=== PATIENT | male | born 1980 | race Hispanic/Latino ===

== ENCOUNTER 2024-06-02 10:09 | Emergency (ER) | payer BC ==
--- OUTSIDE RECORDS SUMMARY | 2024-06-02 10:12 | XMS REPORT | Continuity of Care Document ---
Author Name Unknown Address [address] [facility] [address] [place] [address] [facility] thconnect Address [address] [facility] [address] [place] [address] Care Team Providers Care Dairy Associate Name Role Phone Eryn Attending Clinician UnavailJabier Sewell Attending Clinician Unavailable MAGDIEL Attending Clinician Unavailable Luther Fraser Attending Clinician [phone] Eryn Admitting Clinician Jabier Arnold Admitting Clinician Unavailable MAGDIEL Admitting Clinician Unavailable Payers Payer Name Policy Type Policy Number Effective Date Expirati on Date Source [place] [id number] 2019 00:00:00 Problems Condition Name Condition Details Condition Category Status Onset Date Resolution Date Last Treatment Date Treating Clinician Comments Source Anterior to posterior tear of superior glenoid labrum of left shoulder Anterior to Posterior Tear of Superior Glenoid Labrum of Left Shoulder Problem Active 2021-05 00:00: 00 [facility] Pain of left shoulder joint Pain of Left Shoulder Joint Problem Active 2021-05 0 00:00: 00 [facility] Instabilit y of left shoulder joint Instabilit y of Left Shoulder Joint Problem Active 2021-05 0 00:00: 00 [facility] Family history of Cardiovasc ular disease Family History of Cardiovasc ular Disease Problem Active 06-21 00:00: 00 [facility] History of SARS-CoV-2 History of SARS-CoV-2 Problem Active 06-21 00:00: 00 [facility] Allergies, Adverse Reactions, Alerts Allergy Name Allergy Type Status Severity Reaction(s) Onset Date Inactive Date Treating Clinician Comments Source No Known Drug Allergie s DA Active U 2021-05 00:00: 00 [facility] Social History Smoking Status Start Date Stop Date Source Never Smoker [facility] Medications Ordered Medication Name Filled Medication Name Start Date Stop Date Current Medication? Ordering Clinician Indication Dosage Frequency Signature (SIG) Comments Components Source methocarbam ol 500 mg tablet Take 2 tablets 4 times a day by oral route. methocarbam ol 500 mg tablet Take 2 tablets 4 times a day by oral route. No 2 QID methocarba mol 500 mg tablet Take 2 tablets 4 times a day by oral route. [facility] prednisone 20 mg tablet 3 po qd on first day, 2 po qd on second day, then 1 po qd until finished. prednisone 20 mg tablet 3 po qd on first day, 2 po qd on second day, then 1 po qd until finished. No prednisone 20 mg tablet 3 po qd on first day, 2 po qd on second day, then 1 po qd until finished. [facility] amoxicillin 875 mg-potassiu m clavulanate 125 mg tablet TAKE 1 TABLET BY MOUTH IN THE MORNING AND 1 TABLET IN THE EVENING. amoxicillin 875 mg-potassiu m clavulanate 125 mg tablet TAKE 1 TABLET BY MOUTH IN THE MORNING AND 1 TABLET IN THE EVENING. No amoxicilli n 875 mg-potassi um clavulanat e 125 mg tablet TAKE 1 TABLET BY MOUTH IN THE MORNING AND 1 TABLET IN THE EVENING. [facility] methocarbam ol 500 mg tablet TAKE 2 TABLETS 4 TIMES A DAY BY ORAL ROUTE. methocarbam ol 500 mg tablet TAKE 2 TABLETS 4 TIMES A DAY BY ORAL ROUTE. No methocarba mol 500 mg tablet TAKE 2 TABLETS 4 TIMES A DAY BY ORAL ROUTE. [facility] prednisone 20 mg tablet PLEASE SEE ATTACHED FOR DETAILED DIRECTIONS prednisone 20 mg tablet PLEASE SEE ATTACHED FOR DETAILED DIRECTIONS No prednisone 20 mg tablet PLEASE SEE ATTACHED FOR DETAILED DIRECTIONS [facility] amoxicillin 875 mg-potassiu m clavulanate 125 mg tablet TAKE 1 TABLET BY MOUTH IN THE MORNING AND 1 TABLET IN THE EVENING. amoxicillin 875 mg-potassiu m clavulanate 125 mg tablet TAKE 1 TABLET BY MOUTH IN THE MORNING AND 1 TABLET IN THE EVENING. No amoxicilli n 875 mg-potassi um clavulanat e 125 mg tablet TAKE 1 TABLET BY MOUTH IN THE MORNING AND 1 TABLET IN THE EVENING. [facility] methocarbam ol 500 mg tablet TAKE 2 TABLETS 4 TIMES A DAY BY ORAL ROUTE. methocarbam ol 500 mg tablet TAKE 2 TABLETS 4 TIMES A DAY BY ORAL ROUTE. No methocarba mol 500 mg tablet TAKE 2 TABLETS 4 TIMES A DAY BY ORAL ROUTE. [facility] prednisone 20 mg tablet PLEASE SEE ATTACHED FOR DETAILED DIRECTIONS prednisone 20 mg tablet PLEASE SEE ATTACHED FOR DETAILED DIRECTIONS No prednisone 20 mg tablet PLEASE SEE ATTACHED FOR DETAILED DIRECTIONS [facility] Vital Signs Vital Name Observation Time Observation Value Comments S ource Height 2022-03-21 00:00:00 73 [in_i] [facility] BMI (Body Mass Index) 2022-03-21 00:00:00 24 kg/m2 [facility] Body Weight 2022-03-21 00:00:00 182 [lb_av] [facility] Height 2022-03-07 00:00:00 73 [in_i] [facility] BMI (Body Mass Index) 2022-03-07 00:00:00 24 kg/m2 [facility] Body Weight 2022-03-07 00:00:00 182 [lb_av] [facility] BP Diastolic 2021-06-21 00:00:00 74 mm[Hg] [facility] Height 2021-06-21 00:00:00 72 [in_i] [facility] BMI (Body Mass Index) 2021-06-21 00:00:00 26.4 kg/m2 [facility] BP Systolic 2021-06-21 00:00:00 128 mm[Hg] [facility] Body Weight 2021-06-21 00:00:00 3120 [oz_av] [facility] Procedures Procedure Date / Time Performed Performing Clinician Source XR, shoulder, 2 or more view 2022-03-07 00:00:00 [facility] MR, arthrogram, shoulder 2022-03-07 00:00:00 [facility] Circumcision [facility] Reconstruction of Anterior Cruciate Ligament of Knee Joint [facility] Partial Repair of Rotator Cuff [facility] Procedure on Lung [facility] Knee Surgery [facility] Shoulder Surgery [facility] Plan of Care Planned Activity Planned Date Details Comments Source Diagnostic Test Pending 2021-06-21 00:00:00 CMP, serum or plasma [code = CMP, serum or plasma] [facility] Diagnostic Test Pending 2021-06-21 00:00:00 CBC w/ auto diff [code = CBC w/ auto diff] [facility] Diagnostic Test Pending 2021-06-21 00:00:00 lipid panel, serum [code = lipid panel, serum] [facility] Diagnostic Test Pending 2021-06-21 00:00:00 PSA, free, serum or plasma [code = PSA, free, serum or plasma] [facility] Encounters Start Date/Time End Date/Time Encounter Type Admission Type Attending Clinicians Care Facility Care Department Encounter ID Source 2022-05-04 00:00:00 2022-05-04 00:00:00 Outpatient Salma Srinivasan [facility] [id number] [facility] 2022-04-27 00:00:00 2022-04-27 00:00:00 Outpatient Salma Srinivasan [facility] [id number] [facility] 2022-04-16 00:00:00 2022-04-16 00:00:00 Outpatient Salma Srinivasan [facility] [id number] [facility] 2022-04-12 07:21:00 2022-04-12 07:21:[address] [facility] [id number] [facility] 2022-03-28 00:00:00 2022-03-28 00:00:00 Outpatient FOG_Elizabeth Srinivasan [facility] [id number] [facility] 2022-03-21 00:00:00 2022-03-21 00:00:00 Outpatient FOG_Elizabeth Srinivasan [facility] [id number] [facility] 2022-03-21 00:00:00 2022-03-21 00:00:00 Jabier Loo MD: [id number] [place] [address] , Ph. [phone] [facility] [place] [facility] [id number] [facility] 2022-03-20 00:00:00 2022-03-20 00:00:00 Outpatient FOGGrey Srinivasan [facility] [id number] [facility] 2022-03-07 00:00:00 2022-03-07 00:00:00 Outpatient Salma Srinivasan [facility] [id number] [facility] 2022-03-07 00:00:00 2022-03-07 00:00:00 Jabier Loo MD: [id number] [place] [address] , Ph. [phone] [facility] [place] [facility] [id number] [facility] 2022-03-05 00:00:00 2022-03-05 00:00:00 Outpatient FOG_Elizabeth Srinivasan [facility] [id number] [facility] 2022-03-04 00:00:00 2022-03-04 00:00:00 Outpatient DEBORAH_Elizabeth Srinivasan [facility] [id number] [facility] 2021-06-21 12:51:00 2021-06-21 12:51:00 Outpatient MAGDIEL [facility] [id number] [facility] 2021-06-21 00:00:00 2021-06-21 00:00:00 Outpatient Luther Fraser [facility] [id number] 00:00:00 2021-06-21 00:00:00 Luther Fraser, DO: [address], [facility], [place] [address] , Ph. [phone] [facility] - Pending [facility] To [facility] [id number] [facility] 2021-06-19 03:51:00 2021-06-19 03:51:00 Outpatient MAGDIEL [facility]
[2024-06-02] MEDS ORDERED: DICYCLOMINE HCL 20 MG/2 ML AMP IM ONE (10:56)
[2024-06-02] MEDS ORDERED: NA CHLORIDE 0.9% 1,000 ML ONE (10:56)
[2024-06-02 10:59] LABS: Absolute Eosinophils 0.3 K/uL (0-0.5); Absolute Lymphocytes (CBC) 0.9 K/uL (0.7-4.9); Absolute Monocytes 0.8 K/uL (0.1-1.3); Absolute Neutrophil 2.2 K/uL (1.8-8.0); Basophils % 0.7 % (0-1.3); Eosinophils % 7.7 % (0-4.4); Hematocrit 49.8 % (39.6-49.0); Hemoglobin 17.2 g/dL (13.6-17.9); Lymphocytes % 21.2 % (15.3-44.8); MCH 31.1 pg (27.0-35.0); MCHC 34.5 g/dL (32.0-36.0); MPV 8.2 fL (7.6-11.3); Neutrophils % 52.4 % (41.7-73.7); Platelets 155 thou/uL (152-406); RBC Red Blood Cell Count 5.53 M/uL (4.33-5.43); Red Cell Distribution Width 14.4 % (12.1-15.2)
[2024-06-02 11:10] LABS: Anion Gap 8.3 mEq/L (5.0-15.0); Potassium 4.3 mEq/L (3.5-5.1)
[2024-06-02 11:16] LABS: SARS-CoV-2 Antigen CONTROL BLUE LINE VIS/BG OK; SARS-CoV-2 Antigen Rapid Res Negative (Negative)
--- NOTE | 2024-06-02 11:37 | ER ---
Nurse's Notes [facility] Name: Hamilton Grossman Age: 43 yrs Sex: Male : 1980 Arrival Date: 06/02/2024 Time: 10:09 Bed 12 Private MD: Diagnosis: Diarrhea, unspecified Presentation: 06/02 10:29 Chief complaint: Patient states: Abdominal pain with diarrhea for 5 days. Coronavirus ll1 screen: Client indicates they have traveled out of the [place] in the last 14 days. Client traveled to: [facility] diarrhea, fatigue, Client presents with at least one sign or symptom that may indicate coronavirus-19. Standard/surgical mask placed on the client. Ebola Screen: Patient denies travel to an Ebola-affected area in the 21 days before illness onset. Initial Sepsis Screen: Does the patient meet any 2 criteria? No. Patient's initial sepsis screen is negative. Does the patient have a suspected source of infection? No. Patient's initial sepsis screen is negative. Risk Assessment: Do you want to hurt yourself or someone else? Patient reports no desire to harm self or others. Onset of symptoms was May 28, 2024. 10:29 Method Of Arrival: Ambulatory ll1 10:29 Acuity: NHAN 3 ll1 Triage Assessment: 10:29 General: Appears uncomfortable, Behavior is calm, cooperative, appropriate for age. ll1 Pain: Complains of pain in abdomen Pain currently is 3 out of 10 on a pain scale. Quality of pain is described as aching, crampy. Neuro: No deficits noted. GI: Reports cramping, diarrhea. Historical: - Allergies: 10: No Known Allergies; ll1 - Home Meds: 10: None [Active]; ll1 - PMHx: 10: None; ll1 - PSHx: 10: ACL; lung collapsed; ll1 - Immunization history:: Adult Immunizations up to date. - Infectious Disease History:: Denies. - Social history:: Smoking status: Patient denies any tobacco usage or history of. Screenin:54 [facility] ED Fall Risk Assessment (Adult) History of falling in the last 3 months, ll1 including since admission No falls in past 3 months (0 pts) Confusion or Disorientation No (0 pts) Intoxicated or Sedated No (0 pts) Impaired Gait No (0 pts) Mobility Assist Device Used No (0 pt) Altered Elimination No (0 pt) Score/Fall Risk Level 0 - 2 = Low Risk Maintained a safe environment, Hourly rounding (assess needs \T\ fall precautionary measures) done. Abuse screen: Denies threats or abuse. Nutritional screening: No deficits noted. Tuberculosis screening: No symptoms or risk factors identified. Assessment: 11:02 Reassessment: No changes from previously documented assessment. Patient and/or family ll1 updated on plan of care and expected duration. Pain level reassessed. Patient is alert, oriented x 3, equal unlabored respirations, skin warm/dry/pink. 11:54 GI: Bowel sounds present X 4 quads. Abd is soft and non tender X 4 quads. ll1 Vital Signs: 10:29 BP 132 / 89; Pulse 86; Resp 17; Temp 97.7; Pulse Ox 100% ; Weight 85.73 kg; Height 6 ll1 ft. 0 in. ; Pain 3/10; 11:53 BP 131 / 79; Pulse 66; Resp 17; Pulse Ox 100% on R/A; ll1 10:29 Body Mass Index 25.63 (85.73 kg, 182.88 cm) ll1 10:29 Pain Scale: Adult ll1 ED Course: 10:11 Patient arrived in ED. mr 10:18 Pal Mckeon MD is Attending Physician. ec2 10:28 Arm band placed on. ll1 10:32 Triage completed. ll1 10:46 Zeyad Rizo, NELIA is Primary Nurse. ll1 10:46 Patient placed in an exam room, on a stretcher. ll1 10:53 Initial lab(s) drawn, by nj, sent to lab. COVID swab sent to lab. Flu and/or RSV swab kb4 sent to lab. Inserted saline lock: 20 gauge in right antecubital area, using aseptic technique. Blood collected. Flushed with 10 mL NS. 11:02 Influenza Screen (a \T\ B) Sent. ll1 11:02 SARS RAPID Sent. ll1 11:54 Patient has correct armband on for positive identification. Provided Education on: ER ll1 procedures and process. 11:54 No provider procedures requiring assistance completed. IV discontinued, intact, ll1 bleeding controlled, No redness/swelling at site. Pressure dressing applied. Administered Medications: 11:02 Drug: Dicyclomine IM 20 mg IM once Route: IM; Site: left gluteus; ll1 11:42 Follow up: Response: No adverse reaction ll1 11:02 Drug: NS 0.9% IV 1000 ml IV at 1 bolus Per protocol; to be given as a bolus over 60 ll1 minutes Route: IV; Rate: 1 bolus; Site: right antecubital; 11:43 Follow up: Response: No adverse reaction; IV Status: Completed infusion; IV Intake: ll1 1000ml 11:53 Drug: Ciprofloxacin PO 500 mg PO once Route: PO; ll1 11:53 Follow up: Response: No adverse reaction; Pain is decreased ll1 Medication: 11:55 VIS not applicable for this client. ll1 Intake: 11:43 IV: 1000ml; Total: 1000ml. ll1 Outcome: 11:37 Discharge ordered by . ec2 11:54 Discharged to home ambulatory, 1 11:54 Condition: stable 11:54 Discharge instructions given to patient, Instructed on discharge instructions, follow up and referral plans. medication usage, Demonstrated understanding of instructions, follow-up care, medications, Prescriptions given X 3, 11:55 Patient left the ED. 1 Signatures: Naya Guthrie, Reg Reg mr Zeyad Rizo, NELIA RN ll1 Pal Mckeon MD MD ec2 Ashely Gutierrez kb4
--- NOTE | 2024-06-02 11:37 | EDPHYS ---
Physician Documentation [facility] Name: Hamilton Grossman Age: 43 yrs Sex: Male : 1980 Arrival Date: 06/02/2024 Time: 10:09 Bed 12 Private MD: ED Physician Pal Mckeon HPI: 06/02 10:37 This 43 yrs old Male presents to ER via Ambulatory with complaints of ec2 Abdominal Pain, Diarrhea. 10:37 Patient arrives today for evaluation of abdominal cramping and diarrhea. Reports that ec2 has been having symptoms for the past 5 days. Reports that he feels like he is unable to keep food down and she immediately has diarrhea shortly afterwards. Reports no cough and cold symptoms. Denies any fevers. Denies any urinary complaints. 10:39 Patient also reports that he recently got back from [place] several days ago.. ec2 Historical: - Allergies: 10:29 No Known Allergies; ll1 - Home Meds: 10:29 None [Active]; ll1 - PMHx: 10:29 None; ll1 - PSHx: 10:29 ACL; lung collapsed; ll1 - Immunization history:: Adult Immunizations up to date. - Infectious Disease History:: Denies. - Social history:: Smoking status: Patient denies any tobacco usage or history of. ROS: 10:37 Constitutional: as per hpi ec2 Exam: 10:37 Constitutional: GEN: NAD Head: atraumatic Eyes: EOMI Ears: External ears are ec2 normal. CV: regular rate LUNGS: no respiratory distress ABD: non-distended, soft, nontender, not guarding, not rigid SKIN: no evidence of rashes MSK: no evidence of trauma Vital Signs: 10:29 BP 132 / 89; Pulse 86; Resp 17; Temp 97.7; Pulse Ox 100% ; Weight 85.73 kg; Height 6 ll1 ft. 0 in. ; Pain 3/10; 11:53 BP 131 / 79; Pulse 66; Resp 17; Pulse Ox 100% on R/A; ll1 10:29 Body Mass Index 25.63 (85.73 kg, 182.88 cm) ll1 10:29 Pain Scale: Adult ll1 MDM: 10:39 Data reviewed: vital signs, nurses notes. ED course: Patient arrives today for ec2 evaluation of abdominal pain and diarrhea. Reports symptoms onset for 5 days. Examination reveals reassuring abdominal exam. Will obtain lab work, viral swabs and treat the patient with crystalloid and Bentyl. Suspect gastroenteritis. Doubt appendicitis or diverticulitis. Possible viral infection.. 10:47 Medical Screening Exam initiated ec2 11:36 ED course: CBC is reassuring, metabolic profile with appropriate electrolytes and renal ec2 function. Flu and COVID testing negative. On reassessment patient is well-appearing no acute distress. Will discharge home with Susie Cortés given the recent travel as well as anti-emetic as needed for nausea.. 06/02 10:37 Order name: Influenza Screen (a \T\ B); Complete Time: 11:35 ec2 06/02 10:37 Order name: SARS RAPID; Complete Time: 11:35 ec2 06/02 10:37 Order name: CBC with Diff; Complete Time: 11:35 ec2 06/02 10:37 Order name: BMP; Complete Time: 11:35 ec2 06/02 10:37 Order name: IV; Complete Time: 10:46 ec2 Administered Medications: 11:02 Drug: Dicyclomine IM 20 mg IM once Route: IM; Site: left gluteus; ll1 11:42 Follow up: Response: No adverse reaction ll1 11:02 Drug: NS 0.9% IV 1000 ml IV at 1 bolus Per protocol; to be given as a bolus over 60 ll1 minutes Route: IV; Rate: 1 bolus; Site: right antecubital; 11:43 Follow up: Response: No adverse reaction; IV Status: Completed infusion; IV Intake: ll1 1000ml 11:53 Drug: Ciprofloxacin PO 500 mg PO once Route: PO; ll1 11:53 Follow up: Response: No adverse reaction; Pain is decreased ll1 Disposition Summary: 06/02/24 11:37 Discharge Ordered Notes: Location: Home ec2 Condition: Stable ec2 Diagnosis - Diarrhea, unspecified ec2 Followup: ec2 - With: Private Physician - When: - Reason: Re-evaluation by your physician Discharge Instructions: - Discharge Summary Sheet ec2 - Diarrhea, Adult ec2 Forms: - Medication Reconciliation Form ec2 - Antibiotic Education ec2 - Prescription Opioid Use ec2 - Patient Portal Instructions ec2 - Leadership Thank You Letter ec2 Prescriptions: - Reglan 10 mg Oral Tablet - take 1 tablet ORAL route every 6 hours take 30 minutes before meals and at ec2 bedtime; 20 tablet; Refills: 0, Product Selection Permitted - Cipro 500 mg Oral tablet - take 1 tablet ORAL route every 12 hours for 5 days; 10 tablet; Refills: 0, ec2 Product Selection Permitted - dicyclomine 10 mg Oral capsule - take 1 capsule ORAL route 3 times per day; 20 capsule; Refills: 0, Product ec2 Selection Permitted Signatures: Dispatcher [employer] Zeyad Mckay RN RN ll1 Pal Mckeon MD MD ec2 Corrections: (The following items were deleted from the chart) 11:36 11:36 ED course: CBC is reassuring, metabolic profile with appropriate electrolytes and ec2 renal function. Flu and COVID testing negative. On reassessment patient is well-appearing no acute distress. Will discharge home with Bentyl, Cipro given the recent travel as well as Zofran as needed for nausea.. ec2
[2024-06-02] MEDS ORDERED: CIPROFLOXACIN HCL 500 MG TAB ONE (11:46)
[2024-06-02 12:39] VITALS: TEMP 97.7; O2SAT 100
[2024-06-02 12:45] VITALS: BP 131/79
== END 2024-06-02 11:55 | disposition home or self-care (01) ==
LOC: ER 10:09
DX: R19.7 Diarrhea, unspecified (principal); Z11.52 Encounter for screening for COVID-19
CPT/HCPCS: 85025; 80048; 36415; 87804 ×2; 96360; 96372; 99284; 87811; J0500; J7030

== ENCOUNTER 2024-06-09 09:26 | Emergency (ER) | payer BC ==
--- OUTSIDE RECORDS SUMMARY | 2024-06-09 09:30 | XMS REPORT | Continuity of Care Document ---
Author Name Unknown Address [address] [place] [address] [facility] thconnect Address [address] [place] [address] Care Team Providers Care Can Pusher Name Role Phone Eryn Attending Clinician UnavailJabier Sewell Attending Clinician Unavailable MAGDIEL Attending Clinician Unavailable Luther Fraser Attending Clinician [phone] Eryn Admitting Clinician Jabier Arnold Admitting Clinician Unavailable MAGDIEL Admitting Clinician Unavailable Payers Payer Name Policy Type Policy Number Effective Date Expirati on Date Source [place] [id number] 2019 00:00:00 Problems Condition Name Condition Details [...] ular Disease Problem Active 06-21 00:00: 00 [facility] History of SARS-CoV-2 History of SARS-CoV-2 Problem Active 06-21 00:00: 00 [facility] Allergies, Adverse Reactions, Alerts Allergy Name Allergy Type Status Severity Reaction(s) Onset Date Inactive Date Treating Clinician Comments Source No Known Drug Allergie s DA Active U 2021-05 00:00: 00 [facility] Social History Smoking Status Start Date Stop Date Source Never Smoker [facility] Medications Ordered Medication Name Filled Medication Name [...] 4 times a day by oral route. [facility] prednisone 20 mg tablet 3 po qd [...] day, then 1 po qd until finished. [facility] amoxicillin 875 mg-potassiu m clavulanate 125 mg [...] Medicine BP Diastolic 2021-06-21 00:00:00 74 mm[Hg] [facility] Height 2021-06-21 00:00:00 72 [in_i] [facility] BMI (Body Mass Index) 2021-06-21 00:00:00 26.4 kg/m2 [facility] BP Systolic 2021-06-21 00:00:00 128 mm[Hg] [facility] Body Weight 2021-06-21 00:00:00 3120 [oz_av] [facility] Procedures Procedure Date / Time Performed Performing Clinician Source XR, shoulder, 2 or more view 2022-03-07 00:00:00 [facility] MR, arthrogram, shoulder 2022-03-07 00:00:00 [facility] Circumcision [facility] Reconstruction of Anterior Cruciate Ligament of Knee Joint [facility] Partial Repair of Rotator Cuff [facility] Procedure on Lung [facility] Knee [facility] Shoulder Surgery [facility] Plan of Care Planned Activity Planned Date Details Comments Source Diagnostic Test Pending 2021-06-21 00:00:00 CMP, serum or plasma [code = CMP, serum or plasma] [facility] Diagnostic Test Pending 2021-06-21 00:00:00 CBC w/ auto diff [code = CBC w/ auto diff] [facility] Diagnostic Test Pending 2021-06-21 00:00:00 lipid panel, serum [code = lipid panel, serum] [facility] Diagnostic Test Pending 2021-06-21 00:00:00 PSA, free, serum or plasma [code = PSA, free, serum or plasma] [facility] Encounters Start Date/Time End Date/Time Encounter Type Admission Type Attending Clinicians Care Facility Care Department Encounter ID Source 2022-05-04 00:00:00 2022-05-04 00:00:00 Outpatient Salma Srinivasan [facility] [id number] [facility] 2022-04-27 00:00:00 2022-04-27 00:00:00 Outpatient Salma Srinivasan [facility] [id number] [facility] 2022-04-16 00:00:00 2022-04-16 00:00:00 Outpatient Salma Srinivasan [facility] [id number] [facility] 2022-04-12 07:21:00 2022-04-12 07:21:00 Outpatient Jabier Nicole [facility] [id number] [facility] 2022-03-28 00:00:00 2022-03-28 00:00:00 Outpatient FOG_Elizabeth Srinivasan [facility] [id number] [facility] 2022-03-21 00:00:00 2022-03-21 00:00:00 Outpatient FOG_Elizabeth Srinivasan [facility] [id number] [facility] 2022-03-21 00:00:00 2022-03-21 00:00:00 Jabier Loo MD: [id number] [place] [address] , Ph. [phone] [facility] [place] [facility] [place] [facility] [place] [id number] [facility] 2022-03-20 00:00:00 2022-03-20 00:00:00 Outpatient FOGGrey Srinivasan [facility] [id number] [facility] 2022-03-07 00:00:00 2022-03-07 00:00:00 Outpatient Salma Srinivasan [facility] [id number] [facility] 2022-03-07 00:00:00 2022-03-07 00:00:00 Jabier Loo MD: [id number] [place] [address] , Ph. [phone] [facility] [place] [facility] [place] [facility] [place] [id number] [facility] 2022-03-05 00:00:00 2022-03-05 00:00:00 Outpatient FOG_Elizabeth Srinivasan [facility] [id number] [facility] 2022-03-04 00:00:00 2022-03-04 00:00:00 Outpatient DEBORAH_Elizabeth Srinivasan [facility] [id number] [facility] 2021-06-21 12:51:00 2021-06-21 12:51:00 Outpatient MAGDIEL [facility] [id number] [facility] 2021-06-21 00:00:00 2021-06-21 00:00:00 Outpatient Luther Fraser [facility] [id number] 00:00:00 2021-06-21 00:00:00 Luther Fraser, DO: [address], [facility], [place] [address] , Ph. [facility] - [facility], [address] [id number] [facility] 2021-06-19 03:51:00 2021-06-19 03:51:00 Outpatient MAGDIEL [facility]
[2024-06-09] MEDS ORDERED: NA CHLORIDE 0.9% 1,000 ML ONE (10:31)
[2024-06-09] MEDS ORDERED: DICYCLOMINE HCL 20 MG/2 ML AMP IM ONE (10:31)
[2024-06-09 10:44] LABS: Specific Gravity 1.013 (1.005-1.030); Urine Bilirubin NEGATIVE (Negative); Urine Blood Negative (Negative); Urine Clarity Clear (Clear); Urine Color Colorless (Yellow); Urine Glucose NEGATIVE (Negative); Urine Ketones NEGATIVE (Negative); Urine Microscopic Reflex YN NO UMIC; Urine Nitrite NEGATIVE (Negative); Urine Protein NEGATIVE (Negative); Urine Urobilinogen Normal (Normal); Urine pH 6.5 (5.0-7.0)
[2024-06-09 10:44] LABS: Absolute Eosinophils 0.4 K/uL (0-0.5); Absolute Monocytes 0.7 K/uL (0.1-1.3); Absolute Neutrophil 4.9 K/uL (1.8-8.0); Basophils % 0.7 % (0-1.3); Eosinophils % 5.2 % (0-4.4); Hematocrit 45.4 % (39.6-49.0); Hemoglobin 15.2 g/dL (13.6-17.9); Lymphocytes % 13.7 % (15.3-44.8); MCH 30.3 pg (27.0-35.0); MCHC 33.5 g/dL (32.0-36.0); MCV 90.3 fL (80-100); MPV 7.7 fL (7.6-11.3); Monocytes % 10.4 % (3.3-12.3); Nucleated Red Blood Cells % 0.1 % (0-0); Platelets 195 thou/uL (152-406); RBC Red Blood Cell Count 5.03 M/uL (4.33-5.43); Red Cell Distribution Width 14.2 % (12.1-15.2)
--- NOTE | 2024-06-09 10:57 | RAD REPORT ---
EXAMINATION: CT ABDOMEN AND PELVIS WITH CONTRAST CLINICAL INDICATION: Male, 43 years old.ABD PAIN TECHNIQUE: CT abdomen and pelvis was performed, after the administration of IV contrast, as per [facility]par replaced by [facility] protocol. Axial, sagittal and coronal reconstructions were obtained. One or more of the following dose reduction techniques were used: Automated exposure control, adjustment of the mA and/o r kV according to patient size, and/or iterative reconstruction. Unless otherwise specified, incidental findings do not require dedicated imaging follow-up. [id number]. COMPARISON: No prior exam. FINDINGS: LOWER CHEST: No acute process identified.No significant pericardial effusion. Mild circumferential th ickening of the distal esophagus which could reflect esophagitis. UPPER GI: No significant abnormality. LIVER: No significant focal abnormality. GALLBLADDER/BILE DUCTS: No biliary ductal dilatation.? PANCREAS: No mass, ductal dilation, or ashanti-pancreatic fluid. SPLEEN: Unremarkable. ADRENALS: No adrenal masses. KIDNEYS AND URETERS: No hydronephrosis.No suspicious renal mass. ABDOMINAL AORTA AND OTHER VESSELS: Normal caliber aorta and IVC. PERITONEUM: No abnormal free fluid. No free air. LYMPH NODES: No pathologic lymphadenopathy. ABDOMINAL WALL: Small fat containing umbilical hernia. SMALL BOWEL/COLON: Small bowel has normal course and caliber. No colonic wall thickening or pericolon ic inflammatory changes.Normal appendix. URINARY BLADDER: Underdistended but grossly unremarkable. REPRODUCTIVE ORGANS: No pathologic process. MUSCULOSKELETAL: No acute or suspicious osseous abnormality. ADDITIONAL FINDINGS: None. IMPRESSION: No acute or significant abnormalities seen in the abdomen or pelvis. Normal appendix
[2024-06-09 11:01] LABS: Albumin 3.6 g/dL (3.4-5.0); Albumin/Globulin Ratio 0.9 (1.1-1.8); Anion Gap 5.3 mEq/L (5.0-15.0); Bilirubin Total 0.4 mg/dL (0.2-1.0); Globulin 3.9 g/dL (2.3-3.5); Potassium 4.3 mEq/L (3.5-5.1); Protein, Total 7.5 g/dL (6.4-8.2)
--- NOTE | 2024-06-09 11:15 | ER ---
Nurse's Notes [facility] Name: Hamilton Grossman Age: 43 yrs Sex: Male : 1980 Arrival Date: 06/09/2024 Time: 09:26 Bed 8 Private MD: Diagnosis: Abdominal pain, unspecified Presentation: 06/09 10:06 Chief complaint: Patient states: Lower abdominal pain since this morning. Coronavirus jl7 screen: At this time, the client does not indicate any symptoms associated with coronavirus-19. Ebola Screen: No symptoms or risks identified at this time. Initial Sepsis Screen: Does the patient meet any 2 criteria? No. Patient's initial sepsis screen is negative. Does the patient have a suspected source of infection? No. Patient's initial sepsis screen is negative. Risk Assessment: Do you want to hurt yourself or someone else? Patient reports no desire to harm self or others. 10:06 Method Of Arrival: Ambulatory [facility] 10:06 Acuity: NHAN 3 jl7 10:06 Onset of symptoms was June 09, 2024. jl7 Triage Assessment: 10:08 General: Appears in no apparent distress. uncomfortable, Behavior is calm, cooperative, jl7 appropriate for age. Pain: Complains of pain in right lower quadrant and left lower quadrant Pain currently is 6 out of 10 on a pain scale. Neuro: Level of Consciousness is awake, alert, obeys commands, Oriented to person, place, time, situation. Cardiovascular: Patient's skin is warm and dry. Respiratory: Airway is patent Respiratory effort is even, unlabored, Respiratory pattern is regular, symmetrical. GI: Reports lower abdominal pain, diarrhea. : Denies burning with urination, pain with urination. Derm: Skin is pink, warm \T\ dry. Historical: - Allergies: 10:08 No Known Allergies; jl7 - Home Meds: 10:08 None [Active]; jl7 - PMHx: 10:08 None; jl7 - PSHx: 10:08 ACL; lung collapsed; jl7 - Immunization history:: Adult Immunizations unknown. - Infectious Disease History:: Denies. - Social history:: Smoking status: Patient denies any tobacco usage or history of. - Family history:: not pertinent. Screenin:15 [facility] ED Fall Risk Assessment (Adult) History of falling in the last 3 months, ko1 including since admission No falls in past 3 months (0 pts) Confusion or Disorientation No (0 pts) Intoxicated or Sedated No (0 pts) Impaired Gait No (0 pts) Mobility Assist Device Used No (0 pt) Altered Elimination No (0 pt) Score/Fall Risk Level 0 - 2 = Low Risk Oriented to surroundings, Maintained a safe environment, Educated pt \T\ family on fall prevention, incl call for assistance when getting out of bed, Assessed \T\ reinforced patient's understanding of fall precautions, Provided non-skid footwear. Abuse screen: Denies threats or abuse. Denies injuries from another. Nutritional screening: No deficits noted. Tuberculosis screening: No symptoms or risk factors identified. Assessment: 10:30 General: Appears in no apparent distress. Behavior is calm, cooperative, appropriate ko1 for age. Pain: Complains of pain in abdomen and left lower quadrant and right lower quadrant. Neuro: No deficits noted. Cardiovascular: No deficits noted. Respiratory: No deficits noted. GI: Bowel sounds present X 4 quads. Abd is soft and non tender. : No deficits noted. No signs and/or symptoms were reported regarding the genitourinary system. EENT: No deficits noted. No signs and/or symptoms were reported regarding the EENT system. Derm: No deficits noted. No signs and/or symptoms reported regarding the dermatologic system. Musculoskeletal: No deficits noted. No signs and/or symptoms reported regarding the musculoskeletal system. Vital Signs: 10:06 BP 131 / 96; Pulse 66; Resp 17; Pulse Ox 100% ; jl7 11:15 BP 131 / 77; Pulse 62; Resp 18; Pulse Ox 100% ; ko1 ED Course: 09:28 Patient arrived in ED. im 09:31 Hiren Rubio MD is Attending Physician. rt 10:07 Triage completed. jl7 10:08 Arm band placed on right wrist. jl7 10:30 Patient has correct armband on for positive identification. Bed in low position. Call ko1 light in reach. Side rails up X2. Provided Education on: labs. Client placed on continuous cardiac and pulse oximetry monitoring. NIBP monitoring applied. residential monitor on. Door closed. Noise minimized. Lights dimmed. Warm blanket given. 10:30 No provider procedures requiring assistance completed. ko1 10:34 Initial lab(s) drawn, by me, sent to lab. Inserted saline lock: 18 gauge in right zm antecubital area, using aseptic technique. Blood collected. Flushed with 10 mL NS. 10:35 Urine collected: clean catch specimen, clear. zm 10:35 CBC with Diff Sent. zm 10:35 CMP Sent. zm 10:35 Lipase Sent. zm 10:35 Urinalysis w/ reflexes Sent. zm 10:43 CT Abd/Pelvis - IV Contrast Only In Process Unspecified. EDMS 10:50 Cyndi Vogt, RN is Primary Nurse. ko1 11:15 Maikol Hinkle MD is Referral Physician. rt 11:37 IV discontinued, intact, bleeding controlled, No redness/swelling at site. Pressure ko1 dressing applied. Administered Medications: 10:50 Drug: Dicyclomine IM 20 mg IM once Route: IM; Site: right deltoid; ko1 11:20 Follow up: Response: No adverse reaction ko1 10:50 Drug: NS 0.9% IV 1000 ml IV at 1 bolus Per protocol; to be given as a bolus over 60 ko1 minutes Route: IV; Rate: 1 bolus; Site: right antecubital; 11:26 Follow up: Response: No adverse reaction; IV Status: Completed infusion; IV Intake: ko1 1000ml 11:16 Drug: GI Cocktail without - (Maalox PO 30 ml, Lidocaine Mucous Membrane 2 % 15 ko1 ml) PO once Route: PO; 11:38 Follow up: Response: No adverse reaction ko1 Medication: 11:15 VIS not applicable for this client. ko1 Intake: 11:26 IV: 1000ml; Total: 1000ml. ko1 Outcome: 11:15 Discharge ordered by . rt 11:37 Discharged to home ambulatory, with family, ko1 11:37 Condition: stable 11:37 Discharge instructions given to patient, family, Instructed on discharge instructions, follow up and referral plans. medication usage, Demonstrated understanding of instructions, follow-up care, medications, Prescriptions given X 3, 11:38 Patient left the ED. ko1 Signatures: Dispatcher [employer] EDMS Agustin Joseph RN RN jl7 Anjali Love Cyndi Vogt, RN RN ko1 Hiren Rubio MD MD rt Jazz Gusman
--- NOTE | 2024-06-09 11:16 | EDPHYS ---
Physician Documentation [facility] Name: Hamilton Grossman Age: 43 yrs Sex: Male : 1980 Arrival Date: 06/09/2024 Time: 09:26 Bed 8 Private MD: ED Physician Hiren Rubio HPI: 06/09 10:29 This 43 yrs old Male presents to ER via Ambulatory with complaints of rt Abdominal Pain. 10:29 Patient was seen 1 week ago emergency department for abdominal pain, diarrhea, head rt symptoms improving with Bentyl. Diarrhea has since improved but after running out of the Bentyl, he reports recurrence of the generalized abdominal pain this morning. Denies other acute complaints at this time, symptoms are moderate in severity, no other aggravating or alleviating factors.. Historical: - Allergies: 10:08 No Known Allergies; jl7 - Home Meds: 10:08 None [Active]; jl7 - PMHx: 10:08 None; jl7 - PSHx: 10:08 ACL; lung collapsed; jl7 - Immunization history:: Adult Immunizations unknown. - Infectious Disease History:: Denies. - Social history:: Smoking status: Patient denies any tobacco usage or history of. - Family history:: not pertinent. ROS: 10:29 Constitutional: Negative for fever, chills, and weight loss, Cardiovascular: Negative rt for chest pain, palpitations, and edema, Respiratory: Negative for shortness of breath, cough, wheezing, and pleuritic chest pain, MS/Extremity: Negative for injury and deformity, Skin: Negative for injury, rash, and discoloration, Neuro: Negative for headache, weakness, numbness, tingling, and seizure, 10:29 Abdomen/GI: Positive for abdominal pain, Negative for nausea and vomiting, Exam: 10:29 Constitutional: This is a well developed, well nourished patient who is awake, alert, rt and in no acute distress. Head/Face: Normocephalic, atraumatic. Chest/axilla: Normal chest wall appearance and motion. Nontender with no deformity. No lesions are appreciated. Cardiovascular: Regular rate and rhythm with a normal S1 and S2. No gallops, murmurs, or rubs. Normal PMI, no JVD. No pulse deficits. Respiratory: Lungs have equal breath sounds bilaterally, clear to auscultation and percussion. No rales, rhonchi or wheezes noted. No increased work of breathing, no retractions or nasal flaring. Skin: Warm, dry with normal turgor. Normal color with no rashes, no lesions, and no evidence of cellulitis. MS/ Extremity: Pulses equal, no cyanosis. Neurovascular intact. Full, normal range of motion. Neuro: Awake and alert, GCS 15, oriented to person, place, time, and situation. Cranial nerves II-XII grossly intact. Motor strength 5/5 in all extremities. Sensory grossly intact. Cerebellar exam normal. Normal gait. 10:29 Abdomen/GI: Mild tenderness diffusely without rebound, guarding, distention, Vital Signs: 10:06 BP 131 / 96; Pulse 66; Resp 17; Pulse Ox 100% ; jl7 11:15 BP 131 / 77; Pulse 62; Resp 18; Pulse Ox 100% ; ko1 MDM: 10:07 Medical Screening Exam initiated rt 11:33 Differential Diagnosis Gastroenteritis, gastritis, pancreatitis, esophagitis. Data rt reviewed: vital signs, nurses notes. I considered the following discharge prescriptions or medication management in the emergency department Medications were administered in the Emergency Department. See MAR. Independent interpretation of the following test(s) in the Emergency Department CT Scan: My interpretation is No bowel obstructions, interpretation of CT scan images. Test considered but Not performed: Ultrasound No signs of gallbladder pathology, ultrasound is not indicated. Counseling: I had a detailed discussion with the patient and/or guardian regarding the historical points, exam findings, and any diagnostic results supporting the discharge/admit diagnosis, lab results, radiology results, the need for outpatient follow up, to return to the emergency department if symptoms worsen or persist or if there are any questions or concerns that arise at home. Response to treatment: the patient's symptoms have markedly improved after treatment. 06/09 10:08 Order name: CBC with Diff; Complete Time: 11: rt 06/09 10:08 Order name: CMP; Complete Time: 11: rt 06/09 10:08 Order name: Lipase; Complete Time: 11: rt 06/09 10:08 Order name: Urinalysis w/ reflexes; Complete Time: 11: rt 06/09 10:08 Order name: CT Abd/Pelvis - IV Contrast Only; Complete Time: 11: rt 06/09 10:08 Order name: IV Saline Lock; Complete Time: 10:35 rt 06/09 10:08 Order name: Labs collected and sent; Complete Time: 10:35 rt Administered Medications: 10:50 Drug: Dicyclomine IM 20 mg IM once Route: IM; Site: right deltoid; ko1 11:20 Follow up: Response: No adverse reaction ko1 10:50 Drug: NS 0.9% IV 1000 ml IV at 1 bolus Per protocol; to be given as a bolus over 60 ko1 minutes Route: IV; Rate: 1 bolus; Site: right antecubital; 11:26 Follow up: Response: No adverse reaction; IV Status: Completed infusion; IV Intake: ko1 1000ml 11:16 Drug: GI Cocktail without - (Maalox PO 30 ml, Lidocaine Mucous Membrane 2 % 15 ko1 ml) PO once Route: PO; 11:38 Follow up: Response: No adverse reaction ko1 Disposition Summary: 06/09/24 11:15 Discharge Ordered Notes: Location: Home rt Problem: an ongoing problem rt Symptoms: have improved rt Condition: Stable rt Diagnosis - Abdominal pain, unspecified rt Followup: rt - With: Maikol Hinkle MD - When: 2 - 3 days - Reason: Discharge Instructions: - Discharge Summary Sheet rt - Abdominal Pain, Adult rt - Esophagitis rt Forms: - Medication Reconciliation Form rt - Antibiotic Education rt - Prescription Opioid Use rt - Patient Portal Instructions rt - Leadership Thank You Letter rt Prescriptions: - Carafate 100 mg/mL Oral suspension - take 10 milliliter ORAL route 4 times per day NEEDED; 300 milliliter; rt Refills: 0, Product Selection Permitted - Protonix 40 mg Oral Tablet - take 1 tablet ORAL route once daily; 30 tablet; Refills: 0, Product Selection rt Permitted - dicyclomine 10 mg Oral capsule - take 1 capsule ORAL route 3 times per day as needed; 30 capsule; Refills: 0, rt Product Selection Permitted Signatures: Dispatcher [employer] Agustin Yuen RN RN jl7 Cyndi Vogt RN RN ko1 Hiren Rubio MD MD rt
[2024-06-09] MEDS ORDERED: MAGNES/ALUMIN/SIMET 30ML UCUP ONE (11:17)
[2024-06-09] MEDS ORDERED: LIDOCAINE VISCOUS 2% 10ML ORAL SOLN ONE (11:18)
[2024-06-09 16:54] VITALS: O2SAT 100
[2024-06-09 16:55] VITALS: BP 131/77
== END 2024-06-09 11:38 | disposition home or self-care (01) ==
LOC: ER 09:26
DX: R10.84 Generalized abdominal pain (principal)
CPT/HCPCS: 85025; 36415; 81003; 83690; 80053; 74177; Q9967; J0500; J7030